=== PATIENT | female | born 1980 | race Caucasian/White ===

== ENCOUNTER 2016-09-17 13:01 | Emergency (ER) | payer OTHER ==
[2016-09-17] MEDS ORDERED: Sodium Chloride 0.9% 10 ML Syringe FLUSH PRN (13:22)
[2016-09-17] MEDS ORDERED: Sodium Chloride 0.9% 2.5 ML Syringe FLUSH PRN (13:22)
[2016-09-17] MEDS ORDERED: Ondansetron 4 MG/2 ML SDV IVPUSH ONE (13:22)
[2016-09-17] MEDS ORDERED: Sodium Chloride 0.9% 1,000 ML IV ONE (13:22)
--- NOTE | 2016-09-17 13:31 | EDM.PDOC ---
ED HPI HEADACHE COMPLAINT - General Chief Complaint: Headache Stated Complaint: CONCUSSION Time Seen by Provider: 09/17/16 13:27 Source of Information: Reports: Patient, Family History Limitations: Reports: No limitations - History of Present Illness INITIAL COMMENTS - FREE TEXT/NARRATIVE: HISTORY AND PHYSICAL: [36-year-old female presenting with headache unlike she has ever had] History of Present Illness: [History of concussions x3 last month Patient states she was evaluated at that time Headache started today at back of her head"it feels like the back is going to explode" She does admit to nausea She is off balance "all the time" hx of tubal ligation] Review of Systems: As per history of present illness and below otherwise all systems reviewed and negative. Past medical history: As per history of present illness and as reviewed below otherwise noncontributory. Surgical history: As per history of present illness and as reviewed below otherwise noncontributory. Social history: No reported history of drug or alcohol abuse. Family history: As per history of present illness and as reviewed below otherwise noncontributory. Physical exam: Alert, teary eyed. Answers questions appropriately. HEENT: Atraumatic, normocehpalic, pupils reactive, negative for conjunctival pallor or scleral icterus, mucous membranes moist, throat clear, neck supple, nontender, trachea midline. Lungs: Clear to auscultation, breath sounds equal bilaterally, chest non tender. Heart: S1S2, regular, negative for clicks, rubs, or JVD. Abdomen: Soft, nondistended, nontender. Negative for masses or hepatossplenmegaly. Negative for costovertebral tenderness. Pelvis: Stable nontender. Genitourinary: Deferred. Rectal: Deferred Extremities: Atraumatic, negative for cords or calf pain. Neurovascular unremarkable. Neuro: Awake, alert, oriented. Cranial nerves II through XII unremarkable. Cerebellum unremarkable. Motor and sensory unremarkable throughout. Exam nonfocal. Discussed this with the patient and her will discharge to home with concussion protocols Diagnostics: [CBC CMP Head CT] Therapeutics: [Zofran, Ativan, Toradahl] Impression: []Headache post concussion Plan: [Home and sleep. Avoid watching tv, reading, concussion protocal] Definitive disposition and diagnosis as appropriate pending reevaluation and review of above. Timing/Duration: Reports: day(s): Location: Reports: occipital - Related Data Allergies/ADRs: Allergies Allergy/AdvReac Type Severity Reaction Status Date / Time No Known Allergies Allergy Verified 09/17/16 13:13 ED ROS GENERAL - Review of Systems Review Of Systems: See Below - Physical Exam Exam: See Below (see dictation) Course - Vital Signs Last Recorded V/S: Last Vital Signs Temp 36.4 C 09/17/16 13:15 Pulse 69 09/17/16 13:15 Resp 18 09/17/16 13:15 BP 119/79 09/17/16 13:15 Pulse Ox 100 09/17/16 13:15 - Orders/Labs/Meds Orders: Active Orders 24 hr Category Date Time Status Head wo Cont [CT] Stat Exams 09/17/16 13:22 Taken CBC WITH AUTO DIFF [HEME] Stat Lab 09/17/16 13:21 Ordered COMPREHENSIVE METABOLIC PN,CMP [CHEM] Stat Lab 09/17/16 13:21 Ordered Sodium Chloride 0.9% [Saline Flush] Med 09/17/16 13:22 Active 10 ml FLUSH ASDIRECTED PRN Sodium Chloride 0.9% [Saline Flush] Med 09/17/16 13:22 Active 2.5 ml FLUSH ASDIRECTED PRN Saline Lock Insert [OM.PC] Stat Oth 09/17/16 13:21 Ordered Medication Orders Sodium Chloride (Saline Flush) 10 ml FLUSH ASDIRECTED PRN PRN Reason: Keep Vein Open Sodium Chloride (Saline Flush) 2.5 ml FLUSH ASDIRECTED PRN PRN Reason: Keep Vein Open Meds: Medications Generic Name Dose Route Start Last Admin Trade Name Freq PRN Reason Stop Dose Admin Sodium Chloride 10 ml 09/17/16 13:22 Saline Flush FLUSH ASDIRECTED PRN Keep Vein Open Sodium Chloride 2.5 ml 09/17/16 13:22 Saline Flush FLUSH ASDIRECTED PRN Keep Vein Open Discontinued Medications Generic Name Dose Route Start Last Admin Trade Name Freq PRN Reason Stop Dose Admin Sodium Chloride 1,000 mls @ 999 mls/hr 09/17/16 13:22 Normal Saline IV 09/17/16 14:22 STAT ONE Ketorolac Tromethamine 30 mg 09/17/16 14:02 Toradol IVPUSH 09/17/16 14:03 ONETIME ONE Lorazepam 1 mg 09/17/16 14:02 Ativan IVPUSH 09/17/16 14:03 ONETIME ONE Ondansetron HCl 4 mg 09/17/16 13:22 Zofran IVPUSH 09/17/16 13:23 ONETIME ONE Departure - Departure Time of Disposition: 14:27 Disposition: Home, Self-Care 01 Condition: good Clinical Impression: Post-concussion headache Forms: ED Department Discharge - My Orders Last 24 Hours: My Active Orders 09/17/16 13:21 CBC WITH AUTO DIFF [HEME] Stat COMPREHENSIVE METABOLIC PN,CMP [CHEM] Stat Saline Lock Insert [OM.PC] Stat 09/17/16 13:22 Head wo Cont [CT] Stat Sodium Chloride 0.9% [Saline Flush] 10 ml FLUSH ASDIRECTED PRN Sodium Chloride 0.9% [Saline Flush] 2.5 ml FLUSH ASDIRECTED PRN - Assessment/Plan Last 24 Hours: My Active Orders 09/17/16 13:21 CBC WITH AUTO DIFF [HEME] Stat COMPREHENSIVE METABOLIC PN,CMP [CHEM] Stat Saline Lock Insert [OM.PC] Stat 09/17/16 13:22 Head wo Cont [CT] Stat Sodium Chloride 0.9% [Saline Flush] 10 ml FLUSH ASDIRECTED PRN Sodium Chloride 0.9% [Saline Flush] 2.5 ml FLUSH ASDIRECTED PRN
[2016-09-17] MEDS ORDERED: LORazepam 2 MG/ML MDV IVPUSH ONE (14:02)
[2016-09-17] MEDS ORDERED: Ketorolac 30 MG/ML SDV IVPUSH ONE (14:02)
[2016-09-17 14:54] LABS: CHLORIDE,CL 113 mmol/L (98-110); SODIUM,NA 141 mmol/L (136-146)
[2016-09-17 15:12] VITALS: BP 120/84
--- NOTE | 2016-09-19 20:32 | CT ---
EXAM DATE: 09/17/16 PATIENT'S AGE: 36 Patient: COBY CRESPO Facility: [place], [place] Site . Site : [id number] Study: CT Head WO CONT [id number] 1:34:40 PM Ordering Physician: Doctor Hoang Final Report: Indication: Multiple concussions. Blurry vision. Headaches. Comparison: None. Technique: Axial CT of the head without contrast. Findings: Normal brain parenchymal morphology. No acute intracranial hemorrhage, acute infarct, mass effect, or fracture. No midline shift. No abnormal ventricular dilatation. Normal calvarium and skull base. Visualized paranasal sinuses and mastoid air cells are clear. Impression: 1. No acute intracranial abnormality. 2. Normal brain parenchymal morphology. Dictated by Jah Cintron MD @ Sep 17 2016 1:44PM (Electronic Signature) Report Signed by Proxy and Original Signed Document filed in the Medical Record. [facility]
== END 2016-09-17 15:08 | disposition home or self-care (01) ==
LOC: MW.ED 13:01
DX: F07.81 Postconcussional syndrome (principal)
CPT/HCPCS: 70450; 80053; 85025; 96374; 96375; 99284; J1885; J2060; J2405

== ENCOUNTER 2019-01-01 19:29 | Emergency (ER) | payer BC ==
[2019-01-01] MEDS ORDERED: Sodium Chloride 0.9% 10 ML Syringe FLUSH PRN (19:34)
[2019-01-01] MEDS ORDERED: Aspirin 81 MG Tab.Chew PO ONE (19:34)
[2019-01-01] MEDS ORDERED: Sodium Chloride 0.9% 2.5 ML Syringe FLUSH PRN (19:34)
--- NOTE | 2019-01-01 19:35 | EDM.PDOC ---
ED HPI GENERAL MEDICAL PROBLEM - General Chief Complaint: Chest Pain Stated Complaint: CHEST PAIN Time Seen by Provider: 01/01/19 19:35 Source of Information: Reports: Patient History Limitations: Reports: No Limitations - History of Present Illness INITIAL COMMENTS - FREE TEXT/NARRATIVE: HISTORY AND PHYSICAL: History of present illness: patient is a 38-year-old female here with complaint of chest pain. She states she has been having chest pain on and off for the past 2 weeks. Today her pain started about an hour and half prior to arrival to the ED. She reports associated shortness of breath and nausea. She denies cough, fevers, chills, abdominal pain, vomiting, diarrhea. she notes that she found out that her has been cheating on her and this is what her chest pain began. She is also requesting STD testing at this time. She denies any vaginal discharge, burning, itching. she does report smoking history x 15 years, recently went from 1 pack per day to 1-2 cigarettes per day. She reports feeling a lot of anxiety recently. Review of systems: As per history of present illness and below otherwise all systems reviewed and negative. Past medical history: As per history of present illness and as reviewed below otherwise noncontributory. Surgical history: As per history of present illness and as reviewed below otherwise noncontributory. Social history: No reported history of drug or alcohol abuse. Family history: As per history of present illness and as reviewed below otherwise noncontributory. Physical exam: General: Patient sitting comfortably in no acute distress and nontoxic appearing HEENT: Atraumatic, normocephalic, pupils reactive, negative for conjunctival pallor or scleral icterus, mucous membranes moist, throat clear, neck supple, nontender, trachea midline. No meningeal signs. Lungs: Clear to auscultation, breath sounds equal bilaterally, chest nontender. Heart: S1S2, regular, negative for clicks, rubs, or overt murmur. Abdomen: Soft, nondistended, nontender. Negative for masses or hepatosplenomegaly. Negative for costovertebral tenderness. No rigidity, rebound , guarding. Pelvis: Stable nontender. Genitourinary: Deferred. Rectal: Deferred. Extremities: Atraumatic, negative for cords or calf pain. Neurovascular unremarkable. Neuro: Awake, alert, oriented. Cranial nerves II through XII unremarkable. Cerebellum unremarkable. Motor and sensory unremarkable throughout. Exam nonfocal. Notes: EKG shows sinus tachycardia. Diagnostics: CBC, CMP, troponin, EKG, chest x-ray, urine gonorrhea and chlamydia, hCG Therapeutics: duoNeb Aspirin 325 mg chewed 1g Azithromycin IM 250mg Rocephin IM Prescriptions: None Impression: Atypical chest pain, possible STD exposure, anxiety Plan: 1. Follow up with primary care provider 2. Return to ED as needed as discussed Definitive disposition and diagnosis as appropriate pending reevaluation and review of above. chest Pain Score (Numeric/FACES): 8 - Related Data Allergies Allergy/AdvReac Type Severity Reaction Status Date / Time No Known Allergies Allergy Verified 01/01/19 19:36 Home Meds: Home Meds Eszopiclone [Lunesta] mg PO DAILY 01/01/19 [History] oxyCODONE mg PO ASDIRECTED 01/01/19 [History] Past Medical History [employer] History: Reports: Other [employer] History: hysterectomy Neurological History: Reports: Migraines Psychiatric History: Reports: Depression, PTSD - Past Surgical History Musculoskeletal Surgical History: Reports: Other (See Below) Social & Family History - Family History Family Medical History: Noncontributory ED ROS GENERAL - Review of Systems Review Of Systems: ROS reveals no pertinent complaints other than HPI. ED EXAM, GENERAL - Physical Exam Exam: See Below (see dictation) Course - Vital Signs Last Recorded V/S: Last Vital Signs Temp 96.4 F 01/01/19 19:29 Pulse 98 01/01/19 19:29 Resp 18 01/01/19 19:29 BP 122/85 01/01/19 19:29 Pulse Ox 98 01/01/19 19:29 - Orders/Labs/Meds Orders: Active Orders 24 hr Category Date Time Status EKG Documentation Completion [RC] STAT Care 01/01/19 19:34 Active RT Aerosol Therapy [RC] ASDIRECTED Care 01/01/19 19:43 Active CHLAMYDIA AND GONORRHEA BY TMA Stat Lab 01/01/19 19:30 Received Sodium Chloride 0.9% [Saline Flush] Med 01/01/19 19:34 Active 10 ml FLUSH ASDIRECTED PRN Sodium Chloride 0.9% [Saline Flush] Med 01/01/19 19:34 Active 2.5 ml FLUSH ASDIRECTED PRN Saline Lock Insert [OM.PC] Stat Oth 01/01/19 19:34 Ordered Medication Orders Sodium Chloride (Saline Flush) 10 ml FLUSH ASDIRECTED PRN PRN Reason: Keep Vein Open Sodium Chloride (Saline Flush) 2.5 ml FLUSH ASDIRECTED PRN PRN Reason: Keep Vein Open Labs: Laboratory Tests 01/01/19 01/01/19 01/01/19 Range/Units 19:30 19:53 19:53 WBC 10.41 (4.0-11.0) K/uL RBC 4.30 (4.30-5.90) M/uL Hgb 13.3 (12.0-16.0) g/dL Hct 39.6 (36.0-46.0) % MCV 92.1 (80.0-98.0) fL MCH 30.9 (27.0-32.0) pg MCHC 33.6 (31.0-37.0) g/dL RDW Std Deviation 45.7 (28.0-62.0) fl RDW Coeff of Stefanie 14 (11.0-15.0) % Plt Count 273 (150-400) K/uL MPV 11.30 (7.40-12.00) fL Neut % (Auto) 57.2 (48.0-80.0) % Lymph % (Auto) 32.4 (16.0-40.0) % Sully % (Auto) 8.1 (0.0-15.0) % Eos % (Auto) 2.0 (0.0-7.0) % Baso % (Auto) 0.3 (0.0-1.5) % Neut # (Auto) 6.0 H (1.4-5.7) K/uL Lymph # (Auto) 3.4 H (0.6-2.4) K/uL Sully # (Auto) 0.8 (0.0-0.8) K/uL Eos # (Auto) 0.2 (0.0-0.7) K/uL Baso # (Auto) 0.0 (0.0-0.1) K/uL Nucleated RBC % 0.0 /100WBC Nucleated RBCs # 0 K/uL INR 0.98 Sodium (136-145) mmol/L Potassium (3.5-5.1) mmol/L Chloride (98-107) mmol/L Carbon Dioxide (21.0-32.0) mmol/L BUN (7.0-18.0) mg/dL Creatinine (0.6-1.0) mg/dL Est Cr Clr Drug Dosing mL/min Estimated GFR (MDRD) ml/min Glucose (74-106) mg/dL Calcium (8.5-10.1) mg/dL Total Bilirubin (0.2-1.0) mg/dL AST (15-37) IU/L ALT (14-63) IU/L Alkaline Phosphatase (46-116) U/L Troponin I (0.000-0.056) ng/mL Total Protein (6.4-8.2) g/dL Albumin (3.4-5.0) g/dL Globulin (2.6-4.0) g/dL Albumin/Globulin Ratio (0.9-1.6) Urine HCG, Qual NEGATIVE (NEGATIVE) 01/01/19 Range/Units 19:53 WBC (4.0-11.0) K/uL RBC (4.30-5.90) M/uL Hgb (12.0-16.0) g/dL Hct (36.0-46.0) % MCV (80.0-98.0) fL MCH (27.0-32.0) pg MCHC (31.0-37.0) g/dL RDW Std Deviation (28.0-62.0) fl RDW Coeff of Stefanie (11.0-15.0) % Plt Count (150-400) K/uL MPV (7.40-12.00) fL Neut % (Auto) (48.0-80.0) % Lymph % (Auto) (16.0-40.0) % Sully % (Auto) (0.0-15.0) % Eos % (Auto) (0.0-7.0) % Baso % (Auto) (0.0-1.5) % Neut # (Auto) (1.4-5.7) K/uL Lymph # (Auto) (0.6-2.4) K/uL Sully # (Auto) (0.0-0.8) K/uL Eos # (Auto) (0.0-0.7) K/uL Baso # (Auto) (0.0-0.1) K/uL Nucleated RBC % /100WBC Nucleated RBCs # K/uL INR Sodium 140 (136-145) mmol/L Potassium 3.6 (3.5-5.1) mmol/L Chloride 105 (98-107) mmol/L Carbon Dioxide 26.4 (21.0-32.0) mmol/L BUN 8 (7.0-18.0) mg/dL Creatinine 0.8 (0.6-1.0) mg/dL Est Cr Clr Drug Dosing 89.26 mL/min Estimated GFR (MDRD) > 60.0 ml/min Glucose 108 H (74-106) mg/dL Calcium 8.2 L (8.5-10.1) mg/dL Total Bilirubin 0.2 (0.2-1.0) mg/dL AST 15 (15-37) IU/L ALT 27 (14-63) IU/L Alkaline Phosphatase 110 (46-116) U/L Troponin I < 0.050 (0.000-0.056) ng/mL Total Protein 6.4 (6.4-8.2) g/dL Albumin 3.6 (3.4-5.0) g/dL Globulin 2.8 (2.6-4.0) g/dL Albumin/Globulin Ratio 1.3 (0.9-1.6) Urine HCG, Qual (NEGATIVE) Meds: Medications Generic Name Dose Route Start Last Admin Trade Name Freq PRN Reason Stop Dose Admin Sodium Chloride 10 ml 01/01/19 19:34 Saline Flush FLUSH ASDIRECTED PRN Keep Vein Open Sodium Chloride 2.5 ml 01/01/19 19:34 Saline Flush FLUSH ASDIRECTED PRN Keep Vein Open Discontinued Medications Generic Name Dose Route Start Last Admin Trade Name Freq PRN Reason Stop Dose Admin Albuterol/Ipratropium 3 ml 01/01/19 19:43 01/01/19 19:52 Duoneb 3.0-0.5 Mg/3 Ml NEB 01/01/19 19:44 3 ml ONETIME ONE Administration Aspirin 324 mg 01/01/19 19:34 01/01/19 19:55 Aspirin PO 01/01/19 19:35 324 mg ONETIME ONE Administration Departure - Departure Time of Disposition: 20:43 Disposition: Home, Self-Care 01 Condition: Good Clinical Impression: Atypical chest pain, Concern about STD in female without diagnosis, Anxiety Referrals: Lucio Loomis Jr, PA-C [Primary Care Provider] - Forms: ED Department Discharge Additional Instructions: The following information is given to patients seen in the emergency department who are being discharged to home. This information is to outline your options for follow-up care. We provide all patients seen in our emergency department with a follow-up referral. The need for follow-up, as well as the timing and circumstances, are variable depending upon the specifics of your emergency department visit. If you don't have a primary care physician on staff, we will provide you with a referral. We always advise you to contact your personal physician following an emergency department visit to inform them of the circumstance of the visit and for follow-up with them and/or the need for any referrals to a consulting specialist. The emergency department will also refer you to a specialist when appropriate. This referral assures that you have the opportunity for follow-up care with a specialist. All of these measure are taken in an effort to provide you with optimal care, which includes your follow-up. Under all circumstances we always encourage you to contact your private physician who remains a resource for coordinating your care. When calling for follow-up care, please make the office aware that this follow-up is from your recent emergency room visit. If for any reason you are refused follow-up, please contact the [facility] Department at and asked to speak to the emergency department charge nurse. [facility] [address] [place] [id number] [address] [address] 1. Follow up with primary care provider 2. Return to ED as needed as discussed - My Orders Last 24 Hours: My Active Orders 01/01/19 19:30 CHLAMYDIA AND GONORRHEA BY TMA Stat 01/01/19 19:34 EKG Documentation Completion [RC] STAT Sodium Chloride 0.9% [Saline Flush] 10 ml FLUSH ASDIRECTED PRN Sodium Chloride 0.9% [Saline Flush] 2.5 ml FLUSH ASDIRECTED PRN Saline Lock Insert [OM.PC] Stat 01/01/19 19:43 RT Aerosol Therapy [RC] ASDIRECTED - Assessment/Plan Last 24 Hours: My Active Orders 01/01/19 19:30 CHLAMYDIA AND GONORRHEA BY TMA Stat 01/01/19 19:34 EKG Documentation Completion [RC] STAT Sodium Chloride 0.9% [Saline Flush] 10 ml FLUSH ASDIRECTED PRN Sodium Chloride 0.9% [Saline Flush] 2.5 ml FLUSH ASDIRECTED PRN Saline Lock Insert [OM.PC] Stat 01/01/19 19:43 RT Aerosol Therapy [RC] ASDIRECTED
[2019-01-01] MEDS ORDERED: Albuterol/Ipratropium 3.0-0.5 MG/3 ML Neb Soln NEB ONE (19:43)
--- NOTE | 2019-01-01 20:23 | CR ---
INDICATION: Chest pain TECHNIQUE: Chest 1 view. COMPARISON: None FINDINGS: Cardiovascular and mediastinum: Heart size and vasculature are normal in caliber and appearance. Mediastinum is within normal limits. Lungs and pleural space: Lungs are clear. No sign of infiltrate or mass. No sign of pleural effusion. No pneumothorax. Bones and soft tissues: No significant findings. IMPRESSION: Unremarkable chest. Dictated by: Berny Stone MD @ 01/01/2019 20:22:42 (Electronically Signed)
[2019-01-01 20:24] LABS: CHLORIDE,CL 105 mmol/L (98-107); SODIUM,NA 140 mmol/L (136-145)
[2019-01-01] MEDS ORDERED: cefTRIAXone 250 MG in Lidocaine 1% 1 ML IM ONE (20:41)
[2019-01-01] MEDS ORDERED: Azithromycin 250 MG Tab PO STA (20:41)
[2019-01-01] MEDS ORDERED: cefTRIAXone 250 MG Vial ONE (20:53)
[2019-01-01 21:29] VITALS: BP 117/70
== END 2019-01-01 21:29 | disposition home or self-care (01) ==
LOC: MW.ED 19:29
DX: R07.89 Other chest pain (principal); Z20.2 Contact with and (suspected) exposure to infections with a predominantly sexual mode of transmission; F41.9 Anxiety disorder, unspecified; Z79.899 Other long term (current) drug therapy
CPT/HCPCS: 36415; 71045; 80053; 81025; 84484; 85025; 85610; 87491; 87591; 93005; 94640; 96372; 99285; A9270; J0696; J2001; 99284; J7620-GY

== ENCOUNTER 2022-04-25 06:00 | Day surgery (SDC) | payer BC ==
[2022-04-25] MEDS ORDERED: Lactated Ringers 1,000 ML IV ONE (14:30)
[2022-04-25] MEDS ORDERED: Ondansetron 4 MG/2 ML SDV IVPUSH ONE (14:30)
[2022-04-25] MEDS ORDERED: Lidocaine 2% 11 ML Jelly Filled Syringe TOP ONE (14:30)
[2022-04-25] MEDS ORDERED: propofoL 100 ML IV ONE (14:30)
[2022-04-25] MEDS ORDERED: Glycopyrrolate 0.2 MG/ML SDV IVPUSH ONE (14:30)
[2022-04-25] MEDS ORDERED: Midazolam 1 MG/ML 2 ML SDV IV ONE (14:30)
== END 2022-04-25 15:40 ==
LOC: MW.SDS 06:00
PROVIDERS: ATTEND Surgery
DX: K29.50 Unspecified chronic gastritis without bleeding (principal); K21.9 Gastro-esophageal reflux disease without esophagitis; R73.03 Prediabetes; D50.9 Iron deficiency anemia, unspecified; F32.A Depression, unspecified; Z86.010 Personal history of colon polyps; Z90.710 Acquired absence of both cervix and uterus; Z98.890 Other specified postprocedural states; Z90.49 Acquired absence of other specified parts of digestive tract; Z79.899 Other long term (current) drug therapy
CPT/HCPCS: 43239; 45378; A9270; J2250; J2405; J2704; J3490; J7120; 00813